=== PATIENT | male | born 1985 | race African-American/Black ===

== ENCOUNTER 2021-04-23 18:04 | Emergency (ER) | payer BC ==
--- NOTE | 2021-04-23 19:21 | EDM.PDOC ---
ED HPI GENERAL MEDICAL PROBLEM - General Chief Complaint: Chest Pain Stated Complaint: CHEST PAINS Time Seen by Provider: 04/23/21 18:16 Source of Information: Reports: Patient History Limitations: Reports: No Limitations - History of Present Illness INITIAL COMMENTS - FREE TEXT/NARRATIVE: 35-year-old male presents the emergency department today with complaints of intermittent chest pains that started approximately a week ago. Patient states that nothing exacerbates the pain. He states it feels like a weight sitting on his chest. He states that it feels better to take a deep breath however he has to focus on taking a deep breath in order to do so. Also states that the pain radiates into his right shoulder. Denies any cardiac history. Denies history of smoking. Does not take any prescription pain medications and states he is otherwise healthy. Patient however does state that over the past couple of months his work has been increasingly stressful and may contribute this to that. At this time, patient denies any chest discomfort. Chest Pain Score (Numeric/FACES): 7 - Related Data Allergies Allergy/AdvReac Type Severity Reaction Status Date / Time No Known Allergies Allergy Verified 04/23/21 18:19 Home Meds: Home Meds . [No Known Home Meds] 04/23/21 [History] Past Medical History - Infectious Disease History Infectious Disease History: Reports: Chicken Pox Social & Family History - Tobacco Use Tobacco Use Status *Q: Never Tobacco User Second Hand Smoke Exposure: No - Caffeine Use Caffeine Use: Reports: None - Recreational Drug Use Recreational Drug Use: Yes Recreational Drug Type: Reports: Marijuana/Hashish Recreational Drug Use Frequency: Socially ED ROS GENERAL - Review of Systems Review Of Systems: Comprehensive ROS is negative, except as noted in HPI. ED EXAM, GENERAL - Physical Exam Exam: See Below Exam Limited By: No Limitations General Appearance: Alert, WD/WN, No Apparent Distress Ears: Normal External Exam, Hearing Grossly Normal Nose: Normal Inspection Throat/Mouth: Normal Inspection, Normal Lips, Normal Voice, No Airway Compromise Head: Atraumatic Neck: Normal Inspection, Supple Respiratory/Chest: No Respiratory Distress, Lungs Clear, Normal Breath Sounds, No Accessory Muscle Use, Chest Non-Tender Cardiovascular: Normal Peripheral Pulses, Regular Rate, Rhythm, No Edema, No Murmur Peripheral Pulses: 2+: Radial (L), Radial (R) GI/Abdominal: Normal Bowel Sounds, Soft, Non-Tender, No Distention (Male) Exam: Deferred Rectal (Males) Exam: Deferred Back Exam: Normal Inspection Extremities: Normal Inspection Neurological: Alert, Oriented, Normal Cognition Psychiatric: Normal Affect, Normal Mood Skin Exam: Warm, Dry, Intact, Normal Color, No Rash Lymphatic: No Adenopathy #1 Interpretation EKG Date: 04/23/21 Time: 18:14 Rhythm: NSR Rate (Beats/Min): 70 Jermyn: Normal P-Wave: Present QRS: Normal ST-T: Normal QT: Normal EKG Interpretation Comments: Dr. Mendoza interpretation: Sinus rhythm at 70 bpm; ST elevation, probable normal early repolarization pattern. Course - Vital Signs Text/Narrative:: My exam, the patient is in no apparent distress. Physical exam was completed and is unremarkable. He is hemodynamically stable. Will obtain a full cardiac work-up to include labs, EKG and a chest x-ray. Last Recorded V/S: Last Vital Signs Temp 97.5 F 04/23/21 18:05 Pulse 72 04/23/21 18:05 Resp 24 H 04/23/21 18:05 BP 140/87 04/23/21 18:05 Pulse Ox 100 04/23/21 18:05 - Orders/Labs/Meds Orders: Active Orders 24 hr Category Date Time Status Chest 1V Frontal [CR] Stat Exams 04/23/21 18:35 Taken Labs: Laboratory Tests 04/23/21 04/23/21 04/23/21 Range/Units 18:15 18:15 18:15 WBC 4.87 (4.23-9.07) K/mm3 RBC 5.30 (4.63-6.08) M/mm3 Hgb 16.9 (13.7-17.5) gm/dl Hct 49.9 (40.1-51.0) % MCV 94.2 H (79.0-92.2) fl MCH 31.9 (25.7-32.2) pg MCHC 33.9 (32.2-35.5) g/dl RDW Std Deviation 44.3 H (35.1-43.9) fL Plt Count 180 (163-337) K/mm3 MPV 11.4 (9.4-12.3) fl Neut % (Auto) 41.3 (34.0-67.9) % Lymph % (Auto) 48.7 (21.8-53.1) % [place] % (Auto) 8.6 (5.3-12.2) % Eos % (Auto) 0.8 (0.8-7.0) Baso % (Auto) 0.4 (0.1-1.2) % Neut # (Auto) 2.01 (1.78-5.38) K/mm3 Lymph # (Auto) 2.37 (1.32-3.57) K/mm3 [place] # (Auto) 0.42 (0.30-0.82) K/mm3 Eos # (Auto) 0.04 (0.04-0.54) K/mm3 Baso # (Auto) 0.02 (0.01-0.08) K/mm3 D-Dimer, Quantitative < 0.19 L (0.19-0.50) mg/L Sodium 137 (136-145) mEq/L Potassium 4.1 (3.5-5.1) mEq/L Chloride 100 (98-107) mEq/L Carbon Dioxide 30 (21-32) mEq/L Anion Gap 11.1 (5-15) BUN 18 (7-18) mg/dL Creatinine 1.6 H (0.7-1.3) mg/dL Est Cr Clr Drug Dosing 74.21 mL/min Estimated GFR (MDRD) > 60 (>60) mL/min BUN/Creatinine Ratio 11.3 L (14-18) Glucose 112 H (70-99) mg/dL Calcium 9.2 (8.5-10.1) mg/dL Magnesium 1.9 (1.8-2.4) mg/dL Total Bilirubin 0.3 (0.2-1.0) mg/dL AST 26 (15-37) U/L ALT 37 (16-63) U/L Alkaline Phosphatase 73 (46-116) U/L Troponin I < 0.017 (0.00-0.056) ng/mL Total Protein 8.2 (6.4-8.2) g/dl Albumin 4.2 (3.4-5.0) g/dl Globulin 4.0 gm/dL Albumin/Globulin Ratio 1.1 (1-2) - Re-Assessments/Exams Free Text/Narrative Re-Assessment/Exam: 04/23/21 19:21 Hematology is unremarkable, D-dimer less than 0.19, chemistry reveals creatinine of 1.6, GFR greater than 60, glucose 112, magnesium 1.9, troponin less than 0.017 Radiologist impression portable view of the chest: Negative chest. Departure - Departure Time of Disposition: 19:24 Disposition: Home, Self-Care 01 Condition: Good Clinical Impression: Atypical chest pain Instructions: Nonspecific Chest Pain, Adult, [id number] Referrals: PCP,None [Primary Care Provider] - Additional Instructions: You were seen in the emergency department today with complaints of chest pain intermittently over the past week. Full cardiac work-up was completed to include labs, EKG and a chest x-ray. These were all unremarkable. There is no sign of heart injury or heart attack. Suspect that the cause of your intermittent chest discomfort is likely due to stress. Recommend follow-up with your primary care provider in about a week if symptoms continue. Should your current symptoms worsen or change, do not hesitate return the emergency department. Sepsis Event Note (ED) - Evaluation Sepsis Screening Result: No Definite Risk - Focused Exam Vital Signs: Vital Signs Temp Pulse Resp BP Pulse Ox 04/23/21 18:05 97.5 F 72 24 H 140/87 100 - My Orders Last 24 Hours: My Active Orders 04/23/21 18:35 Chest 1V Frontal [CR] Stat - Assessment/Plan Last 24 Hours: My Active Orders 04/23/21 18:35 Chest 1V Frontal [CR] Stat
--- NOTE | 2021-04-24 10:19 | CR ---
EXAM: XR CHEST 1 VIEW LOCATION: [facility] DATE/TIME: 04/23/2021 6:51 PM INDICATION: Chest pain COMPARISON: None. IMPRESSION: Negative chest. SIGNED BY: Afshin Pacheco MD 04/23/2021 8:06 PM MARTINEZ
== END 2021-04-23 19:44 | disposition home or self-care (01) ==
LOC: JD.ED 18:04
DX: R07.89 Other chest pain (principal)
CPT/HCPCS: 36415; 71045; 71045-26; 80053; 83735; 84484; 85025; 85379; 93005; 99285-25